=== PATIENT | male | born 1970 | race Caucasian/White ===

== ENCOUNTER → 2020-10-14 | Outpatient (CLI) | payer OTHER ==
[~2020-10-14] MED LIST: FINA5TAB2; LISI20TA33; TAMS1CAP17
== END ==
LOC: M LABSMTC 10:25
PROVIDERS: ATTEND Anesthesiology
DX: Z01.818 Encounter for other preprocedural examination (principal); Z11.52 Encounter for screening for COVID-19

== ENCOUNTER 2020-10-19 10:42 | Day surgery (SDC) | payer OTHER ==
[~2020-10-19] VITALS: Ht 176.5 cm; Wt 103.0 kg
[~2020-10-19 10:42] MED LIST changes: +LR 1,000 ML IV ONE; +ceFAZolin SOD 2 GM in IV 1 EA IV ONE
[2020-10-19] MEDS ORDERED: propofoL 200 MG/20 ML VIAL As Ordered ONE (11:10)
[2020-10-19] MEDS ORDERED: fentaNYL 100 MCG/2 ML INJECTION (J3010) As Ordered ONE (11:10)
[2020-10-19] MEDS ORDERED: MIDAZOLAM INJ 2MG/2ML VIAL (J2250 PER 1MG) As Ordered ONE (11:10)
[2020-10-19] MEDS ORDERED: LIDOCAINE 2% 100MG/5ML SDV (FOR ANES.) As Ordered ONE (11:10)
[2020-10-19] MEDS ORDERED: ONDANSETRON 4MG/2ML VIAL As Ordered ONE (11:10)
[2020-10-19] MEDS ORDERED: dexameTHASONE 4 MG/ML 1ML VIAL (J1100 PER 1MG) As Ordered ONE (11:10)
[2020-10-19] MEDS ORDERED: CONRAY-60 60% 50ML VIAL (Q9961) As Ordered ONE (11:34)
[2020-10-19] MEDS ORDERED: ACETAMINOPHEN 1000MG 100ML IV BTL (OFIRMEV) (J0131 PER 10MG) As Ordered ONE (12:28)
[2020-10-19] MEDS ORDERED: KETOROLAC 60MG 2ML VIAL As Ordered ONE (12:29)
--- NOTE | 2020-10-19 13:22 | REP ---
INDICATION: DISTAL LEFT URETERAL CALCULI. COMPARISON: None. TECHNIQUE: Single-view. 46 seconds of fluoroscopy time is reported. FINDINGS: A single last image hold fluoroscopically obtained spot radiograph of the abdomen documents a pigtail ureteral stent in place on the left. IMPRESSION: Procedural imaging. <Electronically signed by [place] > 10/19/20 [id number]
--- NOTE | 2020-10-19 13:29 | ROOPDOC ---
[facility] Report Of Operation Report of Operation DATE OF PROCEDURE: 10/19/20 PREPROCEDURE DIAGNOSES: Left distal ureteral calculus POSTPROCEDURE DIAGNOSES: Left distal ureteral calculus PROCEDURE: Cystoscopy, left retrograde pyelogram, ureteroscopic laser lithotripsy, stent insertion, fluoroscopy and x-ray interpretation SURGEON: Dio Stack MD ARTIST MANNEQUIN COLORING: None ANESTHESIA: Gen. ESTIMATED BLOOD LOSS: Approximately less than 10 mL. COMPLICATIONS: None REMARKS: Procedure was complicated by a very large prostate median lobe PROCEDURE NOTE: Patient was brought to the operating room for ureteroscopic laser lithotripsy because intermittently obstructing stone which was unable to pass spontaneously DESCRIPTION OF PROCEDURE: The patient was placed on the table in the supine position, given general anesthesia, placed in lithotomy position, prepped with Betadine paint, draped in an aseptic manner and timeout was performed. A #22 Cymro cystoscope was inserted into the meatus and advanced under direct vision of a 30 lens to the bladder. The patient's found to have a large and vascular median lobe. The bladder was without lesions but he did have 2+ trabeculation present. The ureteral orifices were difficult to identify because of the large prostate. The left ureteral orifice was finally identified and, again, because of the large median lobe, was very difficult to catheterize. A Pollack catheter was finally inserted with the aid of a guidewire. Retrograde injection of Conray sh owed the patient had an obstructing distal ureteral calculus. A guidewire was then left in place as the cystoscope was removed. A short flexible ureteroscope was then advanced over the working wire up to the stone. The stone was able to be grasped in a basket but could not be extracted because of the size and spiculated nature of the stone. It therefore had to be broken up with the laser lithotriptor into smaller fragments some of which are able to be extracted. The cystoscope was then backloaded over the safety wire and a 6 Cymro double-J stent was able to be passed over this wire. It was difficult because again the size of the prostate made manipulation of the scope difficult. It was seen to curl well in the renal pelvis on fluoroscopy and also curled well in the bladder. Stone fragments were then removed from the bladder, bladder was drained, cystoscope was removed and the patient was awakened and sent to recovery room in stable condition having tolerated the procedure well. Fluoroscopy was used throughout the case to evaluate stone, passing instruments and inserted the ureteral stent. He was seen back in the office and 3 or 4 weeks for stent removal. DIO STACK MD October 19, 2020 13:29
[2020-10-19] MEDS ORDERED: ONDANSETRON 4MG/2ML VIAL IV PRN (13:35)
[2020-10-19] MEDS ORDERED: fentaNYL 100 MCG/2 ML INJECTION (J3010) IV PRN (13:35)
[2020-10-19] MEDS ORDERED: IBUPROFEN 600MG TAB PO PRN (13:35)
[2020-10-19] MEDS ORDERED: PERCOCET 5MG/325MG TAB PO PRN (13:35)
[2020-10-19] MEDS ORDERED: METOCLOPRAMIDE INJ 10MG/2ML VIAL (J2765 PER 1) IV PRN (13:35)
[2020-10-19] MEDS ORDERED: LR 1,000 ML IV SCH (13:35)
[2020-10-19 14:15] VITALS: BP 131/76
== END 2020-10-19 14:36 | disposition home or self-care (01) ==
LOC: M SDC 10:42
PROVIDERS: ATTEND Urology
DX: N20.1 Calculus of ureter (principal); N40.0 Benign prostatic hyperplasia without lower urinary tract symptoms; I10 Essential (primary) hypertension; M17.0 Bilateral primary osteoarthritis of knee; D64.9 Anemia, unspecified; E78.5 Hyperlipidemia, unspecified; Z87.891 Personal history of nicotine dependence; Z88.5 Allergy status to narcotic agent; Z79.899 Other long term (current) drug therapy
CPT/HCPCS: 52356; 74420; 82365; 88300; C1769; C2617; J0131; J0690; J1100; J1885; J2250; J2405; J3010; Q9961

== ENCOUNTER → 2022-06-10 | Outpatient (CLI) | payer OTHER ==
[~2022-06-10] MED LIST changes: -LR 1,000 ML IV ONE; -ceFAZolin SOD 2 GM in IV 1 EA IV ONE
== END ==
LOC: M PLAIMG 10:57
PROVIDERS: ATTEND Urology
DX: N20.0 Calculus of kidney (principal)